=== PATIENT | male | born 1990 | race Two or more races ===

== ENCOUNTER 2023-11-03 13:03 | Emergency (ER) | payer MEDICAID ==
[~2023-11-03] VITALS: Ht 182.9 cm; Wt 81.6 kg
[~2023-11-03 13:03] MED LIST: DIPH25CA49 MC; FAMO20TA8 PO; PRED20TA PO
[2023-11-03] MEDS ORDERED: IV NS 0.9% 1,000 ML BAG IV ONE (14:00)
[2023-11-03 14:41] VITALS: BP 120/72; TEMP 97.7; O2SAT 98
== END 2023-11-03 14:41 | disposition home or self-care (01) ==
LOC: ER 13:06
DX: R19.7 Diarrhea, unspecified (principal); Z79.1 Long term (current) use of non-steroidal anti-inflammatories (NSAID); Z79.899 Other long term (current) drug therapy; Z88.1 Allergy status to other antibiotic agents
CPT/HCPCS: J7030